=== PATIENT | female | born 1990 | race Two or more races ===

== ENCOUNTER 2017-05-05 21:10 | Observation (INO) | payer OTHER ==
[~2017-05-05] VITALS: Ht 167.6 cm; Wt 92.5 kg
[2017-05-05] MEDS ORDERED: PREN1TAB78 PO (21:36)
== END 2017-05-06 01:20 | disposition home health service (06) ==
LOC: L&D 21:10
PROVIDERS: ADMIT Obstetrics & Gynecology; ATTEND Obstetrics & Gynecology
DX: O62.9 Abnormality of forces of labor, unspecified (principal); Z3A.37 37 weeks gestation of pregnancy
CPT/HCPCS: 76805; 76818; G0378; 99281; J7120